=== PATIENT | female | born 1960 ===

== ENCOUNTER 2022-12-30 09:52 | Outpatient (CLI) | payer OTHER | END 2022-12-30 10:06 | disposition home or self-care (01) | LOC: RAD 09:52 | PROVIDERS: ATTEND Orthopaedic Surgery | DX: M25.561 Pain in right knee (principal); M25.562 Pain in left knee; M25.551 Pain in right hip; M25.552 Pain in left hip ==

== ENCOUNTER 2023-06-30 12:33 | Outpatient (CLI) | payer OTHER | END 2023-06-30 12:43 | disposition home or self-care (01) | LOC: RAD 12:33 | PROVIDERS: ATTEND Orthopaedic Surgery | DX: M25.552 Pain in left hip (principal); M25.562 Pain in left knee ==